=== PATIENT | female | born 1990 | race Caucasian/White ===

== ENCOUNTER 2024-04-29 21:18 | Observation (INO) | payer BC ==
[~2024-04-29] VITALS: Ht 167.6 cm; Wt 113.4 kg
[2024-04-29 23:59] LABS: BASOPHILS % 0.3 % (0.0-1.0); EOSINOPHILS # (AUTO) 0.1 (0.0-0.4); EOSINOPHILS % 1.1 % (0.0-6.0); HEMATOCRIT 40.9 % (34.2-44.1); HEMOGLOBIN 13.1 g/dL (12.0-16.0); LYMPHOCYTES # (AUTO) 2.6 (1.0-3.2); LYMPHOCYTES % 21.4 % (18.0-39.1); MEAN CORPUSCULAR HEMOGLOBIN 29.9 pg (28-32); MEAN CORPUSCULAR VOLUME 93.4 fL (81-99); MONOCYTES # (AUTO) 0.6 (0.2-0.8); MONOCYTES % 5.2 % (4.4-11.3); NEUTROPHILS # (AUTO) 8.6 (2.1-6.9); NEUTROPHILS % 71.8 % (38.7-80.0); PLATELET COUNT 304 x10e3/uL (140-360); RED BLOOD COUNT 4.38 x10e6/uL (3.6-5.1); RED CELL DISTRIBUTION WIDTH 12.3 % (11.7-14.4); WHITE BLOOD COUNT 11.97 x10e3/uL (4.8-10.8)
[2024-04-30 00:16] LABS: INR 0.89; PARTIAL THROMBOPLASTIN TIME 30.1 seconds (23.8-35.5); PROTHROMBIN TIME 12.6 seconds (11.9-14.5)
[2024-04-30 00:25] LABS: ALBUMIN 4.1 g/dL (3.5-5.0); ALBUMIN/GLOBULIN RATIO 1.2 (0.8-2.0); ANION GAP 14.8 mmol/L (8-16); BILIRUBIN,TOTAL 0.4 mg/dL (0.2-1.2); CALCIUM 9.4 mg/dL (8.4-10.2); CREATININE, SERUM 0.75 mg/dL (0.57-1.11); POTASSIUM 3.8 mmol/L (3.5-5.1); TOTAL PROTEIN 7.4 g/dL (6.5-8.1)
[2024-04-30] MEDS ORDERED: ONDANSETRON HCL INJ 2MG/ML 2ML 2 MG/ML VIAL IV PRN (00:30)
[2024-04-30] MEDS ORDERED: Morphine 4mg INJECTION 4 MG/ML INJ IV PRN (00:30)
[2024-04-30] MEDS: SODIUM CHLORIDE 0.9% 1000ML 1,000 ML IV SCH ×2 (00:30→00:34)
[2024-04-30] MEDS: METRONIDAZOLE 500MG/NS 100ML 100 ML IV SCH (00:34)
[2024-04-30 04:00] VITALS: BP 119/81; PULSE 71; RESP 20; TEMP 98.5; O2SAT 100
[2024-04-30 04:01] VITALS: BP 119/81; PULSE 71; RESP 20; TEMP 98.5; O2SAT 100
[2024-04-30] MEDS ORDERED: INFLUENZA VIRUS VAC SPLIT INJ 0.5 ML SYR IM SCH (04:22)
[2024-04-30 09:00] VITALS: BP 133/85; PULSE 92; RESP 18; TEMP 98.2; O2SAT 97
[2024-04-30] MEDS ORDERED: METOCLOPRAMIDE HCL 10 MG/2ML VIAL ONE (16:30)
[2024-04-30] MEDS ORDERED: KETOROLAC TROMETHAMINE 30 MG/ML VIAL ONE (16:30)
[2024-04-30] MEDS ORDERED: ONDANSETRON HCL INJ 2MG/ML 2ML 2 MG/ML VIAL ONE (16:30)
[2024-04-30] MEDS ORDERED: FENTANYL CITRATE/PF 100MCG/2 ML INJ ONE (16:30)
[2024-04-30] MEDS ORDERED: LIDOCAINE HCL 2% LOCAL INJ 5 ML SDV VIAL INJ ONE ×2 (16:30→18:08)
[2024-04-30] MEDS ORDERED: SEVOFLURANE INHAL SOLN 250 ML PEN BTL ONE (16:31)
[2024-04-30] MEDS ORDERED: SUCCINYLCHOLINE CHLORIDE 20 MG/ML 10ML VIAL ONE (16:31)
[2024-04-30] MEDS ORDERED: PROPOFOL IV EMULSION 10 MG/ML 20 ML VIAL ONE (16:31)
[2024-04-30] MEDS ORDERED: HYDROMORPHONE 2MG/ML ONE (17:47)
[2024-04-30] MEDS ORDERED: HYDROCODONE/APAP 7.5MG-325MG 1 EA TAB PO PRN (18:30)
[2024-04-30] MEDS ORDERED: HYDROMORPHONE 1MG/1ML INJ IV PRN (18:30)
[2024-04-30] MEDS ORDERED: KETOROLAC TROMETHAMINE 30 MG/ML VIAL IV PRN (18:30)
[2024-04-30 20:02] VITALS: BP 126/61; PULSE 85; RESP 16; TEMP 97.2; O2SAT 100
[2024-04-30 22:40] VITALS: BP 126/61; PULSE 85; RESP 16; TEMP 97.2; O2SAT 100
[2024-05-01 00:10] VITALS: BP_SYST 123; BP_SYST 126; BP_DIAS 62; BP_DIAS 67; PULSE 78; RESP 18; TEMP 98; O2SAT 95
[2024-05-01 04:13] VITALS: BP 122/72; PULSE 81; RESP 18; TEMP 97.8; O2SAT 99
[2024-05-01 06:12] LABS: BASOPHILS % 0.1 % (0.0-1.0); HEMATOCRIT 36.8 % (34.2-44.1); HEMOGLOBIN 12.7 g/dL (12.0-16.0); LYMPHOCYTES # (AUTO) 1.2 (1.0-3.2); LYMPHOCYTES % 10.5 % (18.0-39.1); MEAN CORPUSCULAR HGB CONC 34.5 g/dL (31-35); MONOCYTES # (AUTO) 0.3 (0.2-0.8); MONOCYTES % 2.7 % (4.4-11.3); NEUTROPHILS # (AUTO) 9.8 (2.1-6.9); NEUTROPHILS % 86.3 % (38.7-80.0); PLATELET COUNT 305 x10e3/uL (140-360); RED BLOOD COUNT 4.23 x10e6/uL (3.6-5.1); RED CELL DISTRIBUTION WIDTH 12.4 % (11.7-14.4); WHITE BLOOD COUNT 11.36 x10e3/uL (4.8-10.8)
[2024-05-01 06:34] LABS: ANION GAP 12.9 mmol/L (8-16); CALCIUM 8.7 mg/dL (8.4-10.2); CREATININE, SERUM 0.68 mg/dL (0.57-1.11); POTASSIUM 3.9 mmol/L (3.5-5.1)
[2024-05-01 08:00] VITALS: BP 125/75; PULSE 83; RESP 18; TEMP 97.8; O2SAT 99
[2024-05-01 09:00] VITALS: BP 125/75; PULSE 83; RESP 18; TEMP 98; O2SAT 99
== END 2024-05-01 12:46 | disposition home or self-care (01) ==
LOC: ER 22:20 → ERHOLD 04-30 00:27 → MED/SURG2 04-30 03:23
PROVIDERS: ADMIT Surgery; ATTEND Surgery
DX: K61.2 Anorectal abscess (principal); E66.01 Morbid (severe) obesity due to excess calories; Z68.41 Body mass index [BMI] 40.0-44.9, adult
CPT/HCPCS: 36415 ×2; 46270; 80048; 80053; 84702; 85025 ×2; 85610; 85730; 99284; G0378 ×2; J0330; J1170; J1885; J2003; J2405; J2543 ×2; J2704; J2765; J3010; J7030 ×2